=== PATIENT | female | born 1965 | race Caucasian/White ===

== ENCOUNTER → 2017-01-01 | Outpatient (CLI) | payer OTHER ==
[~2017-01-01] MED LIST: ASA325 MG PO; CRANBERRY500 M1 PO; IBUPROFEN200 MG PO; LOPRESSOR DPS50 MG PO; NORCO 5-325 TA1 EACH PO
--- NOTE | ~2017-01-01 | ECH ---
Transthoracic Echocardiography Report (TTE) Demographics Patient Name MARTIN HILL Date of Study 01/01/2017 Patient Number [id number] Visit Number [id number] Date of 1965 Room Number Accession Number [id number] Gender Female Age 51 year(s) Referring Malinda Vega Job Superintendent Tammie Mead MD RD Malinda Vega Physician Interpreting Eyal MARTINEZ Spreader Physician Bryan Supervising Ordering Physician Malinda Vega MD/ANNELISE MARTINEZ Nurse Stress Occupational Nurse Conclusions Contractility Score Summary Normal Left Ventricular contractility was noted. Summary Limited exam for ejection fraction. Doppler not performed. The estimated left ventricular ejection fraction is 60%. Normal appearing valvular structure. Normal study. Recommendation The patient will be given the results of this study by the physician who ordered the exam. Procedure Type of Study TTE procedure:Echo Limited SF. Procedure Date Date: 01/01/2017 Start: 11:10 AM Technical Quality: Good visualization Indications:History of Breast Cancer, Monitoring for Herceptin . Appropriate Use Criteria: 9 Height: 66 inches Weight: 150 pounds BSA: 1.77 m Rhythm: NSR HR: 80 bpm BP: 137/96 mmHg M-Mode/2D Measurements LV Diastolic Dimension: 4.9 cm LV Systolic Dimension: 3.2 cm LV Septum Diastolic: 0.8 cm LV PW Diastolic: 0.8 cm AO Root Dimension: 3.2 cm LA Dimension: 3.3 cm RV Diastolic Dimension: 3.19 cm LA volume: 51.4 ml LA volume index: 29 ml/m RV Base: 3.3 cm RV Mid: 2.1 cm TAPSE: 2.8 cm Doppler Measurements RA Area: 14 cm Findings Left Ventricle Normal left ventricle size and function. Right Ventricle Normal right ventricle structure and function. Left Atrium Normal left atrial size. Right Atrium Normal right atrial size. Mitral Valve Normal mitral valve structure and function. Aortic Valve Normal aortic valve structure and function. Tricuspid Valve Normal tricuspid valve structure and function. Pulmonic Valve Normal pulmonic valve structure and function. Pericardial Effusion No evidence of pericardial effusion. Miscellaneous Visualized portions of the aortic root and ascending aorta appear normal in size. Pleural Effusion No evidence of pleural effusion. Contractility Score LV regional wall motion:(0-Non visualized 1-Normal 2-Hypokinesis 3-Akinesis 4-Dyskinesis 5-Aneurysm) Signature
== END | disposition home or self-care (01) ==
LOC: CARD 10:54
DX: C50.412 Malignant neoplasm of upper-outer quadrant of left female breast (principal); Z17.0 Estrogen receptor positive status [ER+]; Z79.899 Other long term (current) drug therapy

== ENCOUNTER 2017-01-26 15:12 | Observation (INO) | payer OTHER ==
[~2017-01-26] VITALS: Ht 165.1 cm; Wt 64.4 kg
[2017-02-07] MEDS ORDERED: LOPRESSOR DPS50 MG PO (20:04)
[2017-02-07] MEDS ORDERED: ASA325 MG PO (20:04)
[2017-02-07] MEDS ORDERED: CRANBERRY500 M1 PO (20:05)
[2017-02-07] MEDS ORDERED: NORCO 5-325 TA1 EACH PO (20:05)
[2017-02-07] MEDS ORDERED: IBUPROFEN200 MG PO (20:05)
--- NOTE | 2017-03-03 11:26 | OR ---
ADMIT: 02/05/2017 RM/LOC: [address] [facility] MR#: [id number] [address] [address] MARTIN HILL [address] [place] [address] Operative/Delivery Room Report SEX: F AGE: 51 : 1965 SURGERY DATE: 02/05/2017 SURGEON: Marcellus Owens MD CHIEF COMPLAINT: Left breast cancer. PREOPERATIVE DIAGNOSIS: Left breast cancer. POSTOPERATIVE DIAGNOSIS: Left breast cancer. PROCEDURE PERFORMED: 1. Bilateral total mastectomies. 2. Injection of Lymphazurin for sentinel lymph node identification on the left side. 3. Left-sided sentinel lymph node biopsy. VACUUM METALIZER OPERATOR: MAHENDRA Walker ANESTHESIA: General endotracheal. ESTIMATED BLOOD LOSS: Less than 50 mL. DESCRIPTION OF PROCEDURE: After appropriate informed consent was obtained, the patient was brought to the operating room. General endotracheal anesthesia was induced. The patient's bilateral chest was prepped and draped in a sterile fashion. It should be noted prior to prepping, I did inject 3 mL Lymphazurin in the left breast in the nipple areolar complex region. So, with everything prepped and draped, I started on the left side with sentinel lymph node biopsy. The gamma probe was used to identify area of greatest intensity in the left axilla. Incision was created and carried deep with cautery. I was able to identify a single hot blue lymph node that was excised. The counts on this were appropriately high and the background count was less than 10%. This lymph node was handed off, sent to pathology for frozen section. I then went to the right side and performed the right-sided mastectomy first with the noncancerous side. An elliptical incision was created with a #10 blade, carried deep with cautery keeping the skin flaps uniform thickness approximately 1 cm thick. The breast was then reflected off the chest wall using cautery. The wound was then dried up with cautery. Copiously irrigated out with warm saline and the bleeding is controlled with cautery. A 15-Luxembourgish round Monico drain was placed underneath the skin flaps. The skin flaps were closed with 3-0 Vicryl in dermal layer and running 4-0 Monocryl in the subcuticular layer. On the left side, I then performed a similar mastectomy. At this point, ADMIT: 02/05/2017 RM/LOC: [address] [facility] MR#: [id number] [address] [address] [facility] [id number] [place] [id number] Operative/Delivery Room Report SEX: F AGE: 51 : 1965 pathology came back stating that the lymph node appeared benign. So elliptical incision was created on the left side. This was carried deep again with the cautery keeping the skin flaps uniform thickness approximately 1 cm thick. The breast was reflected off the chest wall and oriented and sent to pathology. The wound was dried up, irrigated out and once I ensured hemostasis, a 15-Lux[place]bourgish round Monico drain was placed underneath the skin flaps on the left side. This wound was then closed with 3-0 Vicryl in dermal layer running 4-0 Monocryl in the subcuticular layer. Sterile dressings were applied. The drains were sewn in place and placed to bulb suction. The patient tolerated the procedure well and was taken to the recovery room in stable condition. Braden Bello assisted in entire procedure. His help was necessary for retraction. Marcellus Owens MD/ mercedes JOB #: [id number] CC: Marcellus Owens MD, Attending Physician Braden Navarro MD, Family Physician
== END 2017-02-06 18:45 | disposition home or self-care (01) ==
LOC: 6PED 02-05 07:00 → WOR 02-05 07:00 → EDSTATUS 02-05 08:00 → RAD.S 02-05 08:00 → 6PED 02-05 13:05
PROVIDERS: ADMIT Surgery
DX: C50.912 Malignant neoplasm of unspecified site of left female breast (principal); N60.11 Diffuse cystic mastopathy of right breast; I10 Essential (primary) hypertension; Z98.890 Other specified postprocedural states; Z90.710 Acquired absence of both cervix and uterus; Z90.49 Acquired absence of other specified parts of digestive tract; Z79.899 Other long term (current) drug therapy

== ENCOUNTER → 2017-03-26 | Outpatient (CLI) | payer OTHER ==
--- NOTE | ~2017-03-26 | ECH ---
Transthoracic Echocardiography Report (TTE) Demographics Patient Name MARTIN HILL Date of Study 03/26/2017 Patient Number [id number] Visit Number [id number] Date of 1965 Room Number Accession Number [id number] Gender Female Age 51 year(s) Referring Anthony Hernandez Surgery Manager Tammie Sotomayor [facility] Physician SINCERE Physician Interpreting [place] [employer] Manager Physician MD Supervising Ordering Physician Anthony Hernandez APRN, MD/MLP Nurse Stress Highway Technician Conclusions Summary Limited study for ejection fraction. Doppler not performed. Technically good exam. The estimated left ventricular ejection fraction is 55%. Mild buckling of the anterior mitral leaflet, no definitive prolapse Procedure Type of Study TTE procedure:Echo Complete SF. Procedure Date Date: 03/26/2017 Start: 09:08 AM Technical Quality: Good visualization Indications:History of Breast Cancer, Monitoring for Herceptin . Appropriate Use Criteria: 9 Height: 66 inches Weight: 143 pounds BSA: 1.73 m Rhythm: NSR HR: 61 bpm BP: 125/76 mmHg M-Mode/2D Measurements LV Diastolic Dimension: 5.02 cm LV Systolic Dimension: 3.47 cm LV Septum Diastolic: 0.71 cm LV PW Diastolic: 0.72 cm AO Root Dimension: 2.71 cm LA Dimension: 2.68 cm RV Diastolic Dimension: 2.96 cm LA volume: 52.29 ml LA volume index: 30 ml/m RV Base: 3.5 cm RV Mid: 2.2 cm TAPSE: 2.6 cm Doppler Measurements RA Area: 14.49 cm Findings Left Ventricle Normal left ventricle size and function. Right Ventricle Normal right ventricle structure and function. Left Atrium Normal left atrial size. Right Atrium Normal right atrial size. Mitral Valve Mild buckling of the anterior mitral leaflet. Aortic Valve Normal aortic valve structure and function. Tricuspid Valve Normal tricuspid valve structure and function. Pulmonic Valve Normal pulmonic valve structure and function. Pericardial Effusion No evidence of pericardial effusion. Miscellaneous Visualized portions of the aortic root and ascending aorta appear normal in size. Pleural Effusion No evidence of pleural effusion. Contractility Score LV regional wall motion:(0-Non visualized 1-Normal 2-Hypokinesis 3-Akinesis 4-Dyskinesis 5-Aneurysm) Signature
== END | disposition home or self-care (01) ==
LOC: CARD 08:55
DX: Z51.81 Encounter for therapeutic drug level monitoring (principal); I10 Essential (primary) hypertension; Z85.3 Personal history of malignant neoplasm of breast; Z79.899 Other long term (current) drug therapy